=== PATIENT | male | born 1995 | race Caucasian/White ===

== ENCOUNTER 2018-04-16 09:08 | Emergency (ER) | payer OTHER ==
[2018-04-16 09:24] VITALS: BP 140/68
--- NOTE | 2018-04-16 09:59 | UC ---
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 States happened on upper lip 2 days ago, and received benadryl from [facility]. Denies anything new. " -here w/ his GF Doreen. -hives worse this morning with swelling in cheeks/face and throat. throat sx worsening upon arrival to . -hives on abdomen, pelvis, thighs and back. swelling worsening in face upon arrival as well. no SOB or CP. no diarrhea or vomitting. -severe anxiety of needles. -no significant PMH except for ADD, takes prescribed adderall. last dose yesterday morning. none today. - History of Current Complaint Chief Complaint: Cathie Stated Complaint: ALLERGIC REACTION SKIN COMPLAINT Time Seen by Provider: 04/16/18 09:22 Pain Intensity: 0 - Allergies/Home Medications Allergies/Adverse Reactions: Allergies Allergy/AdvReac Type Severity Reaction Status Date / Time Penicillins Allergy Hives Verified 04/16/18 09:18 Home Medications: Home Medications Dextroamphetamine/Amphetamine [Adderall 10 mg-] 1 tab PO DAILY 04/16/18 [ History Confirmed 04/16/18] PMH/Surg Hx/FS Hx/Imm Hx Previously Healthy: Yes Psychological History: Other - ADD Other Psychological History: ADD - Surgical History Surgical History: None - Family History Known Family History: Positive: Other - no known Fhx of anaphylaxis. - Social History Alcohol Use: Weekly Substance Use Type: Marijuana Substance Use Comment - Amount & Last Used: daily Smoking Status (MU): Never Smoked Tobacco Review of Systems Constitutional: Negative Skin: Rash Eyes: Negative ENT: Sore Throat Respiratory: Negative Cardiovascular: Negative Gastrointestinal: Negative Genitourinary: Negative Motor: Negative Neurovascular: Negative Musculoskeletal: Negative Neurological: Negative Psychological: Negative Is Patient Immunocompromised?: No All Other Systems Reviewed And Are Negative: Yes Physical Exam Triage Information Reviewed: Yes Appearance: Well-Appearing, No Pain Distress, Well-Nourished Vital Signs: Initial Vital Signs Temp 98.5 F 04/16/18 09:19 Pulse 85 04/16/18 09:19 Resp 15 04/16/18 09:19 BP 140/68 04/16/18 09:19 Pulse Ox 97 04/16/18 09:19 Vital Signs Reviewed: Yes Eye Exam: Normal ENT: Positive: TMs normal, Uvula midline - w/ mild swelling. no lip or tongue swelling. + swelling of cheeks prominent.. Negative: Muffled voice, Hoarse voice Dental Exam: Normal Neck exam: Normal Neck: Positive: No Lymphadenopathy Respiratory: Positive: Chest non-tender, Lungs clear, Normal breath sounds, No respiratory distress, No accessory muscle use. Negative: Crackles, Rhonchi, Stridor, Wheezing Cardiovascular Exam: Normal Cardiovascular: Positive: RRR, No Murmur Abdomen Description: Positive: Nontender, Soft Bowel Sounds: Positive: Present Musculoskeletal Exam: Normal Neurological Exam: Normal Psychological: Positive: Consolable - extremely anxious and tremulous with injection and IV placement. GF very consoling. Skin: Positive: rashes - significant hives urticaria over right flank, abdomen RT>LT. pelvis, thighs and back. mild over neck and face Allergic Reaction Course/Dx - Course Course Of Treatment: -Pt given IM solumedrol 125mgs, benadryl 50mgs followed by epi 0.3 mgs IM. IV placed w/ NS. IV replaced. EMS called for ALS transport. BP minimum 87/28 which improved w/ epi to 90s/70s and HR improved to 58. Improved further w/ IV. Pt extermely anxious w/ IM injections. GF Doreen at bed side very consoling. skin very pale and clammy w/ IM injections. Color improved after epi and IV and became more rleaxed w/ improecvemnt in BP and HR. he remained conscience throughout and was able to converse. Hives and swelling improved significantly within minutes of solumedrol. he repoted resolution of throat swelling. -discussed the need for allergy testing. he should get rx for epi pen befor dc from ER and always carry with him. he should use it and benadryl 50mg po imemdiately w/ any sign of swelling/hives. they understood me well. - Differential Dx/Diagnosis Differential Diagnosis/HQI/PQRI: Anaphylaxis, Angioedema Provider Diagnoses: anaphylaxis Discharge - Sign-Out/Discharge Documenting (check all that apply): Patient Departure All imaging exams completed and their final reports reviewed: No Studies - Discharge Plan Condition: Improved Disposition: TRANS HIGHER LVL OF CARE FAC Referrals: No Primary Care Phys,NOPCP [Primary Care Provider] - - Billing Disposition and Condition Condition: IMPROVED Disposition: Trans Higher Lvl of Care Fac
[2018-04-16] MEDS ORDERED: diPHENhydraMINE IV* 50 MG/ML 1 ml VIAL (BENADRYL) IM ONE (10:13)
[2018-04-16] MEDS ORDERED: EPINEPHrine AMP 1 MG/ML SUBCUT ONE (10:13)
[2018-04-16] MEDS ORDERED: NS 0.9% 1000 ML* 1,000 ML IV ONE (10:14)
[2018-04-16] MEDS ORDERED: methylPREDNISolone 125 MG* 2 ML VIAL IM ONE (10:15)
[2018-04-16] MEDS ORDERED: EPINEPHRINE 1 MG/ML 1 ML VIAL ONE (10:33)
== END 2018-04-16 10:03 | disposition short-term general hospital (02) ==
LOC: UCCORT 09:08
DX: T78.2XXA Anaphylactic shock, unspecified, initial encounter (principal); F98.8 Other specified behavioral and emotional disorders with onset usually occurring in childhood and adolescence; Z88.0 Allergy status to penicillin
CPT/HCPCS: 96372; 99203; G0463; J0171; J1200; J2930

== ENCOUNTER 2018-12-25 17:38 | Emergency (ER) | payer OTHER ==
[2018-12-25] MEDS ORDERED: NS 0.9% 1000 ML** 1,000 ML IV ONE (17:55)
--- NOTE | 2018-12-25 18:07 | UC ---
Dizzy HPI HPI Summary: 23-year-old male presents with complaints of lightheadedness and dizziness since this morning. States he developed fever, chills, nasal congestion, sinus pressure, sore throat, and cough about 4 or 5 days ago. He was seen at the [facility]. States he had a negative rapid strep test and was started on azithromycin pending a throat culture which he says was also negative. States he completed 3 days of the azithromycin. Last dose was yesterday. Did not take today because his housemates accidentally threw his prescription out. He states he did go to a graduation alliance party last evening and had a couple of beers. His girlfriend states that he has been resting and sleeping in one of his roommates times a day which is extremely hot. He does report some urinary frequency however also states that he has been pushing fluids. Denies headache, neck pain, visual disturbances, ear pain, dysphagia, chest pain, palpitations, shortness of breath, diaphoresis, abdominal pain, nausea, vomiting, or diarrhea. - History Of Current Complaint Chief Complaint: UCGeneralIllness Stated Complaint: DIZZY Time Seen by Provider: 12/25/18 17:42 Hx Obtained From: Patient Pain Intensity: 3 - Allergies/Home Medications Allergies/Adverse Reactions: Allergies Allergy/AdvReac Type Severity Reaction Status Date / Time Penicillins Allergy Hives Verified 12/25/18 17:45 Home Medications: Home Medications Acetaminophen/Diphenhydramine [Tylenol Pm Ex-Strength Caplet] 1,000 mg PO DAILY 12/25/18 [History Confirmed 12/25/18] Azithromycin 250 mg PO DAILY 12/25/18 [History Confirmed 12/25/18] PMH/Surg Hx/FS Hx/Imm Hx Psychological History: Other - ADHD - Surgical History Surgical History: None - Family History Known Family History: Positive: Non-Contributory - Social History Occupation: Student Lives: Dormitory/Roommates Alcohol Use: Weekly Substance Use Type: Marijuana Substance Use Comment - Amount & Last Used: daily Smoking Status (MU): Never Smoked Tobacco Review of Systems All Other Systems Reviewed And Are Negative: Yes Constitutional: Positive: Fever, Chills Skin: Negative: Rash Eyes: Negative: Blurred Vision, Diplopia, Drainage, Eye Redness, Photophobia ENT: Positive: Sore Throat, Nasal Discharge, Sinus Congestion, Sinus Pain/ Tenderness. Negative: Ear Ache Respiratory: Positive: Cough. Negative: Shortness Of Breath Cardiovascular: Negative: Palpitations, Chest Pain Gastrointestinal: Negative: Abdominal Pain, Vomiting, Diarrhea, Nausea Genitourinary: Positive: Frequency. Negative: Dysuria, Hematuria, Urgency Musculoskeletal: Negative: Arthralgia, Myalgia Neurological: Negative: Headache, Weakness, Paresthesia, Numbness Is Patient Immunocompromised?: No Physical Exam - Summary Physical Exam Summary: GENERAL APPEARANCE: Thin, well nourished, alert and cooperative male who appears to be in no acute distress. HEAD: Atraumatic. normocephalic. EYES: Conjunctiva clear. No drainage. PERRL, EOM intact. Vision is grossly intact. EARS: External auditory canals and tympanic membranes clear, hearing grossly intact. NOSE: Moderate-severe nasal congestion. No nasal discharge. THROAT: Mild pharyngeal erythema. No tonsilar inflammation, swelling, exudate, or lesions. Uvula midline. Oral cavity normal. Teeth and gingiva in good general condition. NECK: Neck supple, non-tender without lymphadenopathy. CARDIAC: Normal S1 and S2. No S3, S4 or murmurs. Rhythm is regular. There is no peripheral edema, cyanosis or pallor. Extremities are warm and well perfused. Capillary refill is less than 2 seconds. Peripheral pulses intact. LUNGS: Clear to auscultation without rales, rhonchi, wheezing or diminished breath sounds. ABDOMEN: Positive bowel sounds. Soft, nondistended, nontender. No guarding or rebound. No masses or hepatosplenomegally. MUSKULOSKELETAL: ROM intact to all extremities. No joint erythema or tenderness. Normal muscular development. Normal gait. NEUROLOGICAL: CN II-XII intact. Strength and sensation symmetric and intact throughout. SKIN: Skin normal color, texture and turgor with no lesions or eruptions. Triage Information Reviewed: Yes Vital Signs: Initial Vital Signs Temp 99.5 F 12/25/18 17:42 Pulse 87 12/25/18 17:42 Resp 22 12/25/18 17:42 BP 136/76 12/25/18 17:42 Pulse Ox 100 12/25/18 17:42 Vital Signs Reviewed: Yes Diagnostics - Laboratory Lab Results: FSBG 145. Rapid flu _. POC UA _. Re-Evaluation - Re-Evaluation First Eval Re-Evaluation Time: 19:10 Change: Improved Comment: Patient has received 1 L NS and states he is feeling much better. No further complaints of dizziness or lightheadedness. Reviewed lab results with patient. He states he feels ready to go home. Dizzy Course/Dx - Course Course Of Treatment: 23-year-old male presents with complaints of lightheadedness and dizziness since this morning. States he developed fever, chills, nasal congestion, sinus pressure, sore throat, and cough about 4 or 5 days ago. He was seen at the [facility]. States he had a negative rapid strep test and was started on azithromycin pending a throat culture which he says was also negative. States he completed 3 days of the azithromycin. Last dose was yesterday. Did not take today because his housemates accidentally threw his prescription out. He states he did go to a graduation alliance party last evening and had a couple of beers. His girlfriend states that he has been resting and sleeping in one of his roommates times a day which is extremely hot. He does report some urinary frequency however also states that he has been pushing fluids. Denies headache, neck pain, visual disturbances, ear pain, dysphagia, chest pain, palpitations, shortness of breath, diaphoresis, abdominal pain, nausea, vomiting, or diarrhea. Afebrile. Vital signs stable. Exam revealed moderate to severe nasal congestion, mild pharyngeal erythema without tonsillar swelling or exudate, uvula midline, no cervical lymphadenopathy, regular rate and rhythm with normal S1-S2, clear bilateral breath sounds, nontender abdomen, and normal neurological exam. [id number] finger stick glucose was 145. Rapid influenza negative. [id number] urinalysis showed 2+ protein, trace blood, and was otherwise normal. Patient was given 1 L of normal saline IV with improvement in his symptoms. I reviewed all his lab results with him. I recommended that he follow up with his primary care provider regarding the elevated blood sugar and trace blood in his urine. I suspect that his URI symptoms are viral in origin and I'm not recommending continuation of his antibiotics at this time. We discussed that his dizziness was most likely from some mild dehydration although I cannot fully rule out other causes. He is to follow-up with his primary care provider in 3-5 days once he returns home from school. Anticipatory guidance and warning symptoms requiring immediate evaluation in the emergency room were reviewed with the patient. Verbalizes understanding and agrees with plan of care. - Differential Dx/Diagnosis Differential Diagnosis/HQI/PQRI: Anxiety, Benign Paroxysmal Positional Vertigo, Hypovolemia, Metabolic Abnormality, Vasovagal Reaction Provider Diagnosis: Dizziness, URI, acute Discharge - Sign-Out/Discharge Documenting (check all that apply): Patient Departure All imaging exams completed and their final reports reviewed: No Studies - Discharge Plan Condition: Stable Disposition: HOME Patient Education Materials: Upper Respiratory Infection (ED), Dizziness (ED) Referrals: No Primary Care Phys,NOPCP [Primary Care Provider] - Additional Instructions: Your history and exam are consistent with an upper respiratory infection. I suspect that your dizziness was most likely from some mild dehydration. Your blood sugar was slightly elevated and there was some trace blood in the urine and you should have this followed up on by your primary care provider. The rapid flu test was negative. I suspect that this most likely viral and do not feel you need any further antibiotics. Drink plenty of fluids to avoid dehydration. Use an over the counter decongestant such as Sudafed for the congestion. Take over the counter acetaminophen (Tylenol) or ibuprofen (Advil, Motrin) according to directions as needed for pain or fever. Use salt water gargles several times a day if you have a sore throat. You may also use Chloraseptic spray or Cepacol lonzenges according to directions which contain a numbing medication and can provide some temporary relief from your sore throat. Follow up with your primary care provider in 3-5 days if symptoms persist. Seek immediate medical attention in the emergency room if you have fever greater than 100.5 F despite taking acetaminophen or ibuprofen, have chest pain , difficulty breathing, are unable to swallow, or have any worsening of symptoms. - Billing Disposition and Condition Condition: STABLE Disposition: Home
[2018-12-25 18:19] LABS: Influenza A Molecular NEGATIVE (Negative); Influenza B Molecular NEGATIVE (Negative)
[2018-12-25 19:11] VITALS: BP 134/59
== END 2018-12-25 18:35 | disposition home or self-care (01) ==
LOC: UCCORT 17:38
DX: R42 Dizziness and giddiness (principal); J06.9 Acute upper respiratory infection, unspecified; F90.9 Attention-deficit hyperactivity disorder, unspecified type; Z88.0 Allergy status to penicillin
CPT/HCPCS: 81003; 96360; 99211; G0463